=== PATIENT | female | born 2000 | race Caucasian/White ===

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

== ENCOUNTER 2021-02-16 15:30 | Emergency (ER) | payer OTHER ==
[~2021-02-16] VITALS: Ht 157.4 cm; Wt 81.6 kg
== END 2021-02-16 19:31 | disposition left against medical advice (07) ==
LOC: ED 15:30
DX: Z20.2 Contact with and (suspected) exposure to infections with a predominantly sexual mode of transmission (principal); Z53.21 Procedure and treatment not carried out due to patient leaving prior to being seen by health care provider

== ENCOUNTER 2021-07-12 20:28 | Emergency (ER) | payer OTHER ==
[2021-07-12 20:56] LABS: BILIRUBIN Negative (Negative); BLOOD Negative (Negative); CLARITY Cloudy (Clear); COLOR Yellow (Yellow); GLUCOSE Negative (Negative); KETONE Negative (Negative); LEUKO ESTERASE 1+ (Negative); NITRITE Negative (Negative); PH 5.5 (4.5-8.0); SPECIFIC GRAVITY >= 1.030 (1.001-1.030)
[2021-07-12 21:07] LABS: BACTERIA 3+; EPITHELIAL CELLS TNTC; WBC 21-30 wbc/hpf (0-5)
[2021-07-12] MEDS ORDERED: AUGMENTIN 875-875 MG PO (21:43)
== END 2021-07-12 21:47 | disposition home or self-care (01) ==
LOC: ED 20:28
PROVIDERS: Nurse Practitioner Family
DX: O23.91 Unspecified genitourinary tract infection in pregnancy, first trimester (principal); Z3A.01 Less than 8 weeks gestation of pregnancy

== ENCOUNTER 2021-07-15 17:31 | Emergency (ER) | payer OTHER ==
[~2021-07-15] VITALS: Ht 157.4 cm; Wt 83.9 kg
[~2021-07-15 17:31] MED LIST changes: +AUGMENTIN 875-875 MG PO
[2021-07-15 19:43] LABS: BASO % 0.3 % (0.0-1.0); EOS # 0.2 10*3/uL (0.0-0.4); EOS % 2.4 % (1.0-4.0); HEMATOCRIT 38.8 % (37.0-47.0); LYMPH # 2.9 10*3/uL (1.3-4.4); MEAN CELL VOLUME 88.8 fl (81.0-99.0); MEAN CORPUSCULAR HGB 29.5 pg (27.0-31.0); MEAN CORPUSCULAR HGB CONC 33.2 g/dl (33.0-37.0); MEAN PLATELET VOLUME 9.8 fl (9.6-12.3); MONO # 0.7 10*3/uL (0.1-1.0); MONO % 7.6 % (3.0-9.0); NEUT # 4.9 10*3/uL (2.3-7.9); NEUT % 55.7 % (47.0-73.0); PLATELET COUNT AUTOMATED 339 10*3/uL (130-400); RED BLOOD COUNT 4.37 10*6/uL (4.10-5.10); RED CELL DISTRI WIDTH 12.9 % (0-14.5); WHITE BLOOD COUNT 8.9 10*3/uL (4.8-10.8)
[2021-07-15 19:54] LABS: ACT PARTIAL THROMBO TIME 30.9 SECONDS (20.0-32.1)
[2021-07-15 20:02] LABS: ALKALINE PHOSPHATASE 99 U/L (45-117); BUN 9 mg/dl (7-24); CHLORIDE 108 mmol/L (98-107); CREATININE 0.61 mg/dL (0.55-1.02); POTASSIUM 3.7 mmol/L (3.5-5.1); SGOT/AST 16 IU/L (3-35); SGPT/ALT 34 U/L (12-78); SODIUM 138 mmol/L (136-145); TOTAL PROTEIN 7.7 gm/dL (6.4-8.2)
== END 2021-07-15 23:46 | disposition home or self-care (01) ==
LOC: ED 17:31
PROVIDERS: Emergency Medicine
DX: O20.9 Hemorrhage in early pregnancy, unspecified (principal); Z3A.01 Less than 8 weeks gestation of pregnancy; F17.200 Nicotine dependence, unspecified, uncomplicated

== ENCOUNTER 2022-02-07 19:49 | Emergency (ER) | payer OTHER | END 2022-02-07 22:30 | disposition left against medical advice (07) | LOC: ED 19:49 | DX: Z53.21 Procedure and treatment not carried out due to patient leaving prior to being seen by health care provider (principal) ==

== ENCOUNTER 2022-03-10 03:26 | Emergency (ER) | payer OTHER ==
[~2022-03-10] VITALS: Ht 160 cm; Wt 85.3 kg
[2022-03-10 03:58] LABS: BILIRUBIN Negative (Negative); BLOOD Negative (Negative); CLARITY Clear (Clear); COLOR Yellow (Yellow); GLUCOSE Negative (Negative); KETONE Trace (Negative); LEUKO ESTERASE Negative (Negative); NITRITE Negative (Negative); PH 5.5 (4.5-8.0); SPECIFIC GRAVITY >= 1.030 (1.001-1.030)
[2022-03-10 04:18] LABS: EPITHELIAL CELLS 21-30
[2022-03-10 04:19] LABS: BACTERIA TRACE; RBC 0-2 rbc/hpf (0-2); WBC 0-2 wbc/hpf (0-5)
== END 2022-03-10 05:13 | disposition home or self-care (01) ==
LOC: ED 03:26
PROVIDERS: Internal Medicine
DX: R10.30 Lower abdominal pain, unspecified (principal)

== ENCOUNTER → 2022-04-02 | Outpatient (CLI) | payer OTHER | END | disposition home or self-care (01) | LOC: US 11:12 | PROVIDERS: ATTEND Nurse Practitioner Family | DX: R10.32 Left lower quadrant pain (principal); R10.2 Pelvic and perineal pain ==

== ENCOUNTER 2022-05-22 10:47 | Emergency (ER) | payer OTHER ==
[~2022-05-22] VITALS: Wt 81.6 kg
[2022-05-22 11:24] LABS: BILIRUBIN Negative (Negative); BLOOD Negative (Negative); CLARITY Turbid (Clear); COLOR Dark Yellow (Yellow); GLUCOSE Negative (Negative); KETONE Trace (Negative); LEUKO ESTERASE Trace (Negative); NITRITE Negative (Negative); PH 5.5 (4.5-8.0); SPECIFIC GRAVITY >= 1.030 (1.001-1.030)
[2022-05-22 11:33] LABS: BACTERIA 4+; EPITHELIAL CELLS 41-50; WBC 16-20 wbc/hpf (0-5)
[2022-05-22 11:34] LABS: MUCOUS 3+
== END 2022-05-22 12:56 | disposition home or self-care (01) ==
LOC: ED 10:47
PROVIDERS: Physician Assistant
DX: Z20.2 Contact with and (suspected) exposure to infections with a predominantly sexual mode of transmission (principal)

== ENCOUNTER 2022-10-08 00:22 | Emergency (ER) | payer OTHER ==
[~2022-10-08] VITALS: Ht 157.4 cm; Wt 86.2 kg
[2022-10-08 01:05] LABS: BILIRUBIN Negative (Negative); BLOOD Negative (Negative); CLARITY Cloudy (Clear); COLOR Yellow (Yellow); GLUCOSE Negative (Negative); KETONE Trace (Negative); LEUKO ESTERASE 1+ (Negative); NITRITE Negative (Negative); PH 5.5 (4.5-8.0); SPECIFIC GRAVITY >= 1.030 (1.001-1.030)
[2022-10-08 01:21] LABS: EPITHELIAL CELLS 41-50
[2022-10-08 01:22] LABS: BACTERIA 3+; WBC 16-20 wbc/hpf (0-5)
[2022-10-08] MEDS ORDERED: GYNE-LOTRIMIN-745 GM V (01:37)
[2022-10-08] MEDS ORDERED: MACROBID100 M1 PO (01:37)
== END 2022-10-08 02:01 | disposition home or self-care (01) ==
LOC: ED 00:22
PROVIDERS: Emergency Medicine
DX: O23.42 Unspecified infection of urinary tract in pregnancy, second trimester (principal); O98.812 Other maternal infectious and parasitic diseases complicating pregnancy, second trimester; O23.592 Infection of other part of genital tract in pregnancy, second trimester; N39.0 Urinary tract infection, site not specified; B37.31 Acute candidiasis of vulva and vagina; J45.909 Unspecified asthma, uncomplicated; F90.9 Attention-deficit hyperactivity disorder, unspecified type; Z3A.21 21 weeks gestation of pregnancy

== ENCOUNTER 2023-08-02 15:57 | Emergency (ER) | payer OTHER ==
[~2023-08-02] VITALS: Ht 157.4 cm; Wt 81.6 kg
[~2023-08-02 15:57] MED LIST changes: +GYNE-LOTRIMIN-745 GM V; +MACROBID100 M1 PO
[2023-08-02 17:16] LABS: BASO % 0.3 % (0.0-1.0); EOS # 0.2 10*3/uL (0.0-0.4); EOS % 1.7 % (1.0-4.0); HEMATOCRIT 37.8 % (37.0-47.0); LYMPH # 2.3 10*3/uL (1.3-4.4); LYMPH % 25.9 % (27.0-41.0); MEAN CELL VOLUME 88.1 fl (81.0-99.0); MEAN CORPUSCULAR HGB 29.1 pg (27.0-31.0); MEAN CORPUSCULAR HGB CONC 33.1 g/dl (33.0-37.0); MEAN PLATELET VOLUME 9.4 fl (9.6-12.3); MONO # 0.6 10*3/uL (0.1-1.0); MONO % 6.2 % (3.0-9.0); NEUT # 5.9 10*3/uL (2.3-7.9); NEUT % 65.5 % (47.0-73.0); PLATELET COUNT AUTOMATED 291 10*3/uL (130-400); RED BLOOD COUNT 4.29 10*6/uL (4.10-5.10); RED CELL DISTRI WIDTH 13.7 % (0-14.5)
[2023-08-02 17:35] LABS: BUN 10 mg/dl (9-23); CHLORIDE 108 mmol/L (98-107); POTASSIUM 3.7 mmol/L (3.4-5.1)
== END 2023-08-02 19:18 | disposition home or self-care (01) ==
LOC: ED 15:57
PROVIDERS: Nurse Practitioner
DX: Z32.01 Encounter for pregnancy test, result positive (principal); J45.909 Unspecified asthma, uncomplicated; F90.9 Attention-deficit hyperactivity disorder, unspecified type

== ENCOUNTER 2024-01-27 04:35 | Emergency (ER) | payer OTHER ==
[~2024-01-27] VITALS: Ht 157.4 cm; Wt 86.2 kg
[2024-01-27 05:17] LABS: BILIRUBIN Negative (Negative); BLOOD Negative (Negative); CLARITY Cloudy (Clear); COLOR Dark Yellow (Yellow); GLUCOSE Negative (Negative); KETONE 1+ (Negative); LEUKO ESTERASE 2+ (Negative); NITRITE Negative (Negative); SPECIFIC GRAVITY >= 1.030 (1.001-1.030)
[2024-01-27 05:49] LABS: BACTERIA 3+; MUCOUS 2+; WBC 31-40 wbc/hpf (0-5)
[2024-01-27 05:53] LABS: BUN 6 mg/dl (9-23); CHLORIDE 105 mmol/L (98-107); POTASSIUM 3.5 mmol/L (3.4-5.1)
[2024-01-27 06:10] LABS: BASO % 0.3 % (0.0-1.0); EOS # 0.2 10*3/uL (0.0-0.4); EOS % 1.4 % (1.0-4.0); HEMATOCRIT 31.1 % (37.0-47.0); LYMPH # 2.6 10*3/uL (1.3-4.4); MEAN CELL VOLUME 85.7 fl (81.0-99.0); MEAN CORPUSCULAR HGB 29.2 pg (27.0-31.0); MEAN CORPUSCULAR HGB CONC 34.1 g/dl (33.0-37.0); MONO # 0.7 10*3/uL (0.1-1.0); MONO % 6.9 % (3.0-9.0); NEUT # 6.7 10*3/uL (2.3-7.9); PLATELET COUNT AUTOMATED 210 10*3/uL (130-400); RED BLOOD COUNT 3.63 10*6/uL (4.10-5.10); RED CELL DISTRI WIDTH 12.9 % (0-14.5); WHITE BLOOD COUNT 10.4 10*3/uL (4.8-10.8)
[2024-01-27] MEDS ORDERED: Amoxicillin/Clavulanate Pota 875 MG TAB PO ONE (06:20)
[2024-01-27] MEDS ORDERED: AMOX-CLAV 875-1 EACH PO (06:24)
== END 2024-01-27 06:31 | disposition home or self-care (01) ==
LOC: ED 04:35
PROVIDERS: Internal Medicine
DX: O23.33 Infections of other parts of urinary tract in pregnancy, third trimester (principal); O99.013 Anemia complicating pregnancy, third trimester; N39.0 Urinary tract infection, site not specified; D64.9 Anemia, unspecified; J45.909 Unspecified asthma, uncomplicated; F90.9 Attention-deficit hyperactivity disorder, unspecified type; R10.2 Pelvic and perineal pain; Z3A.29 29 weeks gestation of pregnancy

== ENCOUNTER → 2024-04-03 | Outpatient (CLI) | payer OTHER ==
[~2024-04-03] MED LIST changes: +AMOX-CLAV 875-1 EACH PO
[2024-04-03 12:03] LABS: BASO % 0.4 % (0.0-1.0); EOS # 0.2 10*3/uL (0.0-0.4); EOS % 2.5 % (1.0-4.0); HEMATOCRIT 30.5 % (37.0-47.0); MEAN CELL VOLUME 84.5 fl (81.0-99.0); MEAN CORPUSCULAR HGB 26.9 pg (27.0-31.0); MEAN CORPUSCULAR HGB CONC 31.8 g/dl (33.0-37.0); MEAN PLATELET VOLUME 10.2 fl (9.6-12.3); MONO # 0.7 10*3/uL (0.1-1.0); MONO % 8.3 % (3.0-9.0); NEUT % 61.2 % (47.0-73.0); PLATELET COUNT AUTOMATED 194 10*3/uL (130-400); RED BLOOD COUNT 3.61 10*6/uL (4.10-5.10); RED CELL DISTRI WIDTH 16.7 % (0-14.5); WHITE BLOOD COUNT 8.1 10*3/uL (4.8-10.8)
== END | disposition home or self-care (01) ==
LOC: LAB 11:34
PROVIDERS: ATTEND Obstetrics & Gynecology
DX: Z34.83 Encounter for supervision of other normal pregnancy, third trimester (principal); Z3A.38 38 weeks gestation of pregnancy

== ENCOUNTER 2024-07-10 23:36 | Emergency (ER) | payer OTHER ==
[~2024-07-10] VITALS: Ht 165.1 cm; Wt 72.6 kg
[2024-07-11 00:02] LABS: BASO % 0.2 % (0.0-1.0); EOS # 0.1 10*3/uL (0.0-0.4); EOS % 1.3 % (1.0-4.0); HEMATOCRIT 40.3 % (37.0-47.0); MEAN CELL VOLUME 84.8 fl (81.0-99.0); MEAN CORPUSCULAR HGB 27.6 pg (27.0-31.0); MEAN CORPUSCULAR HGB CONC 32.5 g/dl (33.0-37.0); MEAN PLATELET VOLUME 9.3 fl (9.6-12.3); MONO # 0.2 10*3/uL (0.1-1.0); MONO % 3.9 % (3.0-9.0); NEUT # 4.2 10*3/uL (2.3-7.9); NEUT % 67.5 % (47.0-73.0); PLATELET COUNT AUTOMATED 329 10*3/uL (130-400); RED BLOOD COUNT 4.75 10*6/uL (4.10-5.10); WHITE BLOOD COUNT 6.2 10*3/uL (4.8-10.8)
[2024-07-11 00:24] LABS: ALKALINE PHOSPHATASE 102 U/L (46-116); BUN 14 mg/dl (9-23); CHLORIDE 106 mmol/L (98-107); POTASSIUM 3.7 mmol/L (3.4-5.1); SGPT/ALT 45 U/L (5-49); TOTAL PROTEIN 7.9 gm/dL (6.0-8.0)
== END 2024-07-11 00:52 | disposition home or self-care (01) ==
LOC: ED 23:36
PROVIDERS: Internal Medicine
DX: Z00.01 Encounter for general adult medical examination with abnormal findings (principal); Z20.822 Contact with and (suspected) exposure to COVID-19; R11.0 Nausea; R19.7 Diarrhea, unspecified; J45.909 Unspecified asthma, uncomplicated; F90.9 Attention-deficit hyperactivity disorder, unspecified type

== ENCOUNTER 2024-11-15 10:40 | Emergency (ER) | payer OTHER ==
[~2024-11-15] VITALS: Ht 157.4 cm; Wt 88.0 kg
[2024-11-15] MEDS ORDERED: CYCLOBENZAPRINE5 M3 PO (12:41)
[2024-11-15] MEDS ORDERED: NAPROSYN500 MG PO (12:41)
== END 2024-11-15 12:46 | disposition home or self-care (01) ==
LOC: ED 10:40
DX: M94.0 Chondrocostal junction syndrome [Tietze] (principal); J45.909 Unspecified asthma, uncomplicated; Z79.899 Other long term (current) drug therapy

== ENCOUNTER 2024-11-28 00:57 | Emergency (ER) | payer OTHER ==
[~2024-11-28] VITALS: Ht 157.4 cm; Wt 90.7 kg
[~2024-11-28 00:57] MED LIST changes: +CYCLOBENZAPRINE5 M3 PO; +NAPROSYN500 MG PO
[2024-11-28 01:38] LABS: BILIRUBIN Negative (Negative); BLOOD Negative (Negative); CLARITY Clear (Clear); COLOR Yellow (Yellow); KETONE Trace (Negative); LEUKO ESTERASE Negative (Negative); NITRITE Negative (Negative); PH 6.0 (4.5-8.0); SPECIFIC GRAVITY 1.025 (1.001-1.030); UROBILINOGEN 1.0 E.U./dl (0.0-1.0)
[2024-11-28 01:46] LABS: BACTERIA TRACE; EPITHELIAL CELLS 41-50
[2024-11-28] MEDS ORDERED: AZITHROMYCIN 250 MG TAB PO ONE (02:00)
== END 2024-11-28 02:51 | disposition home or self-care (01) ==
LOC: ED 00:57
PROVIDERS: Internal Medicine
DX: R10.32 Left lower quadrant pain (principal); J45.909 Unspecified asthma, uncomplicated; Z79.899 Other long term (current) drug therapy

== ENCOUNTER 2025-02-19 19:21 | Emergency (ER) | payer OTHER ==
[~2025-02-19] VITALS: Ht 157.4 cm; Wt 92.5 kg
[2025-02-19] MEDS ORDERED: FAMOTIDINE 20 MG in SYRINGE INFUSION 8 ML IV ONE (19:55)
[2025-02-19] MEDS ORDERED: diphenhydrAMINE hydrochloride 50 MG/ML VIAL IV ONE (19:55)
[2025-02-19 20:24] LABS: BASO # 0.0 10*3/uL (0.0-0.1); BASO % 0.5 % (0.0-1.0); EOS # 0.3 10*3/uL (0.0-0.4); EOS % 3.8 % (1.0-4.0); MEAN CELL VOLUME 90.0 fl (81.0-99.0); MEAN CORPUSCULAR HGB 30.2 pg (27.0-31.0); MEAN PLATELET VOLUME 9.4 fl (9.6-12.3); MONO # 0.4 10*3/uL (0.1-1.0); MONO % 5.4 % (3.0-9.0); NEUT # 3.6 10*3/uL (2.3-7.9); NEUT % 45.5 % (47.0-73.0); NUCLEATED RED BLOOD CELL 0.0 % (0.0-0.0); NUCLEATED RED BLOOD CELL 0.0 10*3/uL (0.0-0.0); PLATELET COUNT AUTOMATED 305 10*3/uL (130-400); RED CELL DISTRI WIDTH 12.4 % (0-14.5)
[2025-02-19 20:51] LABS: BUN 18 mg/dl (9-23); FREE T4 1.19 ng/dl (0.89-1.76)
[2025-02-19] MEDS ORDERED: SODIUM CHLORIDE 0.9% 1,000 ML IV ONE (21:00)
[2025-02-19] MEDS ORDERED: IOHEXOL 300 MG/ML 100 ML VIAL IV ONE (21:05)
[2025-02-19] MEDS ORDERED: IOHEXOL 300 MG/ML 100 ML VIAL ONE (21:31)
[2025-02-19] MEDS ORDERED: CLEOCIN HCL150 MG PO (22:40)
[2025-02-19] MEDS ORDERED: PREDNISONE20 M1 PO (22:40)
== END 2025-02-19 22:46 | disposition home or self-care (01) ==
LOC: ED 19:21
PROVIDERS: Nurse Practitioner Family
DX: R59.1 Generalized enlarged lymph nodes (principal); E04.8 Other specified nontoxic goiter; J45.909 Unspecified asthma, uncomplicated; F90.9 Attention-deficit hyperactivity disorder, unspecified type; Z87.440 Personal history of urinary (tract) infections

== ENCOUNTER → 2025-03-07 | Outpatient (CLI) | payer OTHER ==
[~2025-03-07] MED LIST changes: +CLEOCIN HCL150 MG PO; +PREDNISONE20 M1 PO
== END | disposition home or self-care (01) ==
LOC: US 01:22
PROVIDERS: ATTEND Nurse Practitioner Family
DX: R22.1 Localized swelling, mass and lump, neck (principal)